=== PATIENT | male | born 1950 | race Caucasian/White ===

== ENCOUNTER 2016-07-16 21:30 | Emergency (ER) | payer MEDICARE, BC ==
--- NOTE | 2016-07-16 21:50 | EDM.PDOC ---
ED HPI GI/ABDOMINAL - General Chief Complaint: Abdominal Pain Stated Complaint: Constipation Time Seen by Provider: 07/16/16 21:46 Source of Information: Reports: Patient, Family, RN, RN notes reviewed History Limitations: Reports: No limitations - History of Present Illness INITIAL COMMENTS - FREE TEXT/NARRATIVE: PATIENT REQUESTS TO LEAVE AMA - NO ROS OR PHYSICAL EXAM PERFORMED - Related Data Allergies/ADRs: Allergies Allergy/AdvReac Type Severity Reaction Status Date / Time ticlopidine HCl [From Ticlid] Allergy Cannot Verified 09/21/13 17:54 Remember Home Meds: Home Meds Fish Oil/[place]-3 Fatty Acids [Fish Oil 1,000 MG] 1 each PO TID 07/01/13 [History ] Lisinopril [Prinivil] 40 mg PO DAILY 07/01/13 [History] Nitroglycerin [Nitrostat] 0.4 mg SL ASDIRECTED PRN 07/01/13 [History] Omeprazole 20 mg PO DAILY 07/01/13 [History] Sennosides/Docusate Sodium [Senna-Docusate Sodium] 1 - 2 each PO BEDTIME PRN [History] amLODIPine [Norvasc] 2.5 mg PO DAILY 07/01/13 [History] atorvaSTATin [Lipitor] 40 mg PO BEDTIME 07/01/13 [History] Albuterol [Ventolin HFA] 1 puff INH Q4H PRN 07/02/13 [History] Aspirin [Devendra Chewable] 81 mg PO DAILY 09/13/13 [History] Budesonide/Formoterol [Symbicort 80-4.5 MCG] 1 puff INH BID 09/13/13 [History] Carvedilol [Coreg] 3 tab PO BID 09/13/13 [History] Cilostazol [Pletal] 100 mg PO BID 09/13/13 [History] Clopidogrel [Plavix] 75 mg PO DAILY 09/13/13 [History] Isosorbide Mononitrate [Isosorbide Mononitrate ER] 30 mg PO DAILY 09/13/13 [ History] oxyCODONE HCl/Acetaminophen [Oxycodone-Acetaminophen 5-325] 1 each PO QID PRN [History] Furosemide [Lasix] 80 mg PO DAILY #30 tab 09/14/13 [Rx] Past Medical History - Past Health History Medical/Surgical History: Denies Medical/Surgical History Social & Family History - Tobacco Use Years of Tobacco use: 50 Used Tobacco, but Quit: Yes Month Tobacco Last Used: 06/24 Second Hand Smoke Exposure: No - Alcohol Use Days Per Week of Alcohol Use: 0 - Recreational Drug Use Recreational Drug Use: No ED ROS GENERAL - Review of Systems Review Of Systems: See Below (AMA) ED EXAM, GI/ABD - Physical Exam Exam: Not Obtained (AMA) Course - Vital Signs Last Recorded V/S: Last Vital Signs Temp 35.5 C 07/16/16 21:41 Pulse 101 H 07/16/16 21:41 Resp 20 07/16/16 21:41 BP 121/83 07/16/16 21:41 Pulse Ox 95 07/16/16 21:41 Departure - Departure Time of Disposition: 21:49 Disposition: Against Medical Advice 07 Clinical Impression: Left against medical advice Referrals: Cha Adames DO [Primary Care Provider] - Forms: Refusal of Care AMA - Problem List Review Problem List Initiated/Reviewed/Updated: Yes
[2016-07-16 21:51] VITALS: BP 121/83
== END 2016-07-16 21:51 | disposition left against medical advice (07) ==
LOC: VM.ED 21:30
DX: Z53.21 Procedure and treatment not carried out due to patient leaving prior to being seen by health care provider (principal)

== ENCOUNTER 2017-05-10 07:42 | Emergency (ER) | payer MEDICARE, BC ==
[2017-05-10] MEDS ORDERED: Sodium Chloride 0.9% 1,000 ML IV ONE (08:01)
[2017-05-10] MEDS ORDERED: Ondansetron 4 MG/2 ML SDV IVPUSH ONE (08:02)
--- NOTE | 2017-05-10 08:58 | EDM.PDOC ---
ED HPI GENERAL MEDICAL PROBLEM - General Chief Complaint: Abdominal Pain Stated Complaint: ILL Time Seen by Provider: 05/10/17 07:43 Source of Information: Reports: Patient, Family, Old Records, RN, RN Notes Reviewed History Limitations: Reports: No Limitations - History of Present Illness INITIAL COMMENTS - FREE TEXT/NARRATIVE: Patient presents the emergency room at [facility] complaining of generally not feeling well, nauseated, and poor appetite. The patient states his symptoms have been occurring for the past 2-3 days. The patient states he does feel somewhat lightheaded and dizzy. The patient denies any vomiting. The patient denies any diarrhea. No blood in stool. The patient denies any chest pain. The patient states that he is chronically short of breath. The patient denies any focal neurological deficits. The patient has a long-standing history of chronic systolic heart failure with an ejection fraction of less than 25%. The patient also has a history of paroxysmal atrial fibrillation with RVR. The patient was recently discharged from [facility] in [place] a couple of weeks ago due to heart problems. The patient also has diabetes with moderate COPD. The patient does continue to smoke cigarettes on a daily basis. It is felt that the patient has a poor appetite due to his severe congestive heart failure. Onset: Gradual Onset Date: 05/08/17 Rectal Pain Score (Numeric/FACES): 8 - Related Data Allergies Allergy/AdvReac Type Severity Reaction Status Date / Time ticlopidine HCl [From Ticlid] Allergy Cannot Verified 05/10/17 08:06 Remember Home Meds: Home Meds Fish Oil/[place]-3 Fatty Acids [Fish Oil 1,000 MG] 1 each PO TID 07/01/13 [History ] Lisinopril [Prinivil] 40 mg PO DAILY 07/01/13 [History] Nitroglycerin [Nitrostat] 0.4 mg SL ASDIRECTED PRN 07/01/13 [History] Omeprazole 20 mg PO DAILY 07/01/13 [History] Sennosides/Docusate Sodium [Senna-Docusate Sodium] 1 - 2 each PO BEDTIME PRN [History] amLODIPine [Norvasc] 2.5 mg PO DAILY 07/01/13 [History] atorvaSTATin [Lipitor] 40 mg PO BEDTIME 07/01/13 [History] Albuterol [Ventolin HFA] 1 puff INH Q4H PRN 07/02/13 [History] Aspirin [Devendra Chewable] 81 mg PO DAILY 09/13/13 [History] Budesonide/Formoterol [Symbicort 80-4.5 MCG] 1 puff INH BID 09/13/13 [History] Carvedilol [Coreg] 3 tab PO BID 09/13/13 [History] Cilostazol [Pletal] 100 mg PO BID 09/13/13 [History] Clopidogrel [Plavix] 75 mg PO DAILY 09/13/13 [History] Isosorbide Mononitrate [Isosorbide Mononitrate ER] 30 mg PO DAILY 09/13/13 [ History] oxyCODONE HCl/Acetaminophen [Oxycodone-Acetaminophen 5-325] 1 each PO QID PRN [History] Furosemide [Lasix] 80 mg PO DAILY #30 tab 09/14/13 [Rx] Past Medical History - Past Health History Medical/Surgical History: Denies Medical/Surgical History Social & Family History - Tobacco Use Smoking Status *Q: Current Every Day Smoker Years of Tobacco use: 50 Packs/Tins Daily: 1 Used Tobacco, but Quit: Yes Month Tobacco Last Used: 06/24 Second Hand Smoke Exposure: No - Alcohol Use Days Per Week of Alcohol Use: 0 - Recreational Drug Use Recreational Drug Use: No ED ROS GENERAL - Review of Systems Review Of Systems: See Below Constitutional: Reports: Weakness, Fatigue, Decreased Appetite. Denies: Fever, Chills Respiratory: Reports: Shortness of Breath, Wheezing. Denies: Cough Cardiovascular: Reports: Dyspnea on Exertion, Lightheadedness. Denies: Chest Pain, Palpitations GI/Abdominal: Reports: Decreased Appetite, Nausea. Denies: Abdominal Pain, Bloody Stool, Diarrhea, Vomiting Skin: Reports: No Symptoms Neurological: Reports: Dizziness. Denies: Headache ED EXAM, GENERAL - Physical Exam Exam: See Below Exam Limited By: No Limitations General Appearance: Alert, Mild Distress, Obese Respiratory/Chest: No Respiratory Distress, Decreased Breath Sounds, Wheezing Cardiovascular: Bradycardia (junctional rhythm). No: No Edema, No JVD Peripheral Pulses: 2+: Radial (L), Radial (R) GI/Abdominal: Soft, Non-Tender, Abnormal Bowel Sounds (Hypoactive) Neurological: Alert, Oriented Skin Exam: Warm, Dry, Intact EKG INTERPRETATION EKG Date: 05/10/17 Time: 07:54 Rhythm: Other (junctional) Rate (Beats/Min): 39 Pegram: Normal P-Wave: Absent QRS: RBBB ST-T: Normal QT: Normal WA/PQ Interval: Absent Comparison: Change From Previous EKG EKG Interpretation Comments: 1. Junctional 2. RBBB 3. Possible LVH 4. Possible anterior CO, probably old Course - Vital Signs Last Recorded V/S: Last Vital Signs Temp 35.1 C L 05/10/17 07:45 Pulse 39 L 05/10/17 07:45 Resp 16 05/10/17 07:45 BP 116/86 05/10/17 07:45 Pulse Ox 97 05/10/17 07:45 - Orders/Labs/Meds Orders: Active Orders 24 hr Category Date Time Status Chest 1V Frontal [CR] Stat Exams 05/10/17 08:05 Taken CULTURE BLOOD [BC] Stat Lab 05/10/17 08:21 Results CULTURE BLOOD [BC] Stat Lab 05/10/17 08:25 Results Calcium Gluconate 1 gm Med 05/10/17 10:00 Active Dextrose 5% in Water 100 ml IV ONETIME Dextrose 10% in Water 500 ml Med 05/10/17 10:00 Active IV ASDIRECTED Sodium Chloride 0.9% [Normal Saline] 1,000 ml Med 05/10/17 08:01 Active IV ONETIME Blood Culture x2 Reflex Set [OM.PC] Stat Oth 05/10/17 08:00 Ordered Medication Orders Sodium Chloride (Normal Saline) 1,000 mls @ 30 mls/hr IV ONETIME ONE Stop: 05/11/17 17:20 Last Admin: 05/10/17 08:10 Dose: 30 mls/hr Calcium Gluconate 1 gm/ (Dextrose/Water) 110 mls @ 220 mls/hr IV ONETIME ONE Stop: 05/10/17 10:29 Dextrose/Water (Dextrose 10% In Water) 500 mls @ 50 mls/hr IV ASDIRECTED [facility] Labs: Laboratory Tests 05/10/17 05/10/17 05/10/17 Range/Units 08:25 08:25 08:25 WBC 13.8 H (4.0-10.0) x10^3/uL RBC 5.36 (4.5-6.0) x10^6/uL Hgb 15.6 D (14.0-18.0) g/dL Hct 47.0 (40.0-52.0) % MCV 87.7 (78.0-93.0) fL MCH 29.1 (26.0-32.0) pg MCHC 33.2 (32.0-36.0) g/dL RDW Coeff of Yenni 16.7 H (10.0-15.0) % Plt Count 259 (130-400) x10^3/uL Add Manual Diff Yes Neutrophils % (Manual) 69 (50-80) % Band Neutrophils % 2 (0-6) % Lymphocytes % (Manual) 17 L (25-50) % Monocytes % (Manual) 11 (2-11) % Eosinophils % (Manual) 1 (0-4) % Platelet Estimate Adequate PT (9.8-11.8) SEC INR (2.0-3.5) Sodium 130 L (136-145) mmol/L Potassium 6.5 H* (3.5-5.1) mmol/L Chloride 97 L (98-107) mmol/L Carbon Dioxide 26 (21-32) mmol/L BUN 50 H (7-18) mg/dL Creatinine 1.6 H (0.70-1.30) mg/dL Est Cr Clr Drug Dosing TNP Estimated GFR (MDRD) 43 Glucose 173 H (74-106) mg/dL Lactic Acid 1.3 (0.4-2.0) mmol/L Calcium 8.7 (8.5-10.1) mg/dL Corrected Calcium 9.34 (8.5-10.1) mg/dL Total Bilirubin 0.4 (0.2-1.0) mg/dL AST 14 L (15-37) U/L ALT 17 (16-63) U/L Alkaline Phosphatase 112 (46-116) U/L Creatine Kinase 60 (39-308) U/L Troponin I < 0.017 (<=0.056) ng/mL C-Reactive Protein 1.4 H (<=0.9) mg/dL NT-Pro-B Natriuret Pep 498 H (<=125) pg/mL Total Protein 7.9 (6.4-8.2) g/dL Albumin 3.2 L (3.4-5.0) g/dL Globulin 4.7 Albumin/Globulin Ratio 0.68 Amylase 44 (25-115) U/L Lipase 159 (73-393) U/L Digoxin (0.90-2.00) ng/mL 05/10/17 05/10/17 Range/Units 08:25 08:25 WBC (4.0-10.0) x10^3/uL RBC (4.5-6.0) x10^6/uL Hgb (14.0-18.0) g/dL Hct (40.0-52.0) % MCV (78.0-93.0) fL MCH (26.0-32.0) pg MCHC (32.0-36.0) g/dL RDW Coeff of Yenni (10.0-15.0) % Plt Count (130-400) x10^3/uL Add Manual Diff Neutrophils % (Manual) (50-80) % Band Neutrophils % (0-6) % Lymphocytes % (Manual) (25-50) % Monocytes % (Manual) (2-11) % Eosinophils % (Manual) (0-4) % Platelet Estimate PT 25.8 H D (9.8-11.8) SEC INR 2.5 (2.0-3.5) Sodium (136-145) mmol/L Potassium (3.5-5.1) mmol/L Chloride (98-107) mmol/L Carbon Dioxide (21-32) mmol/L BUN (7-18) mg/dL Creatinine (0.70-1.30) mg/dL Est Cr Clr Drug Dosing Estimated GFR (MDRD) Glucose (74-106) mg/dL Lactic Acid (0.4-2.0) mmol/L Calcium (8.5-10.1) mg/dL Corrected Calcium (8.5-10.1) mg/dL Total Bilirubin (0.2-1.0) mg/dL AST (15-37) U/L ALT (16-63) U/L Alkaline Phosphatase (46-116) U/L Creatine Kinase (39-308) U/L Troponin I (<=0.056) ng/mL C-Reactive Protein (<=0.9) mg/dL NT-Pro-B Natriuret Pep (<=125) pg/mL Total Protein (6.4-8.2) g/dL Albumin (3.4-5.0) g/dL Globulin Albumin/Globulin Ratio Amylase (25-115) U/L Lipase (73-393) U/L Digoxin 1.47 (0.90-2.00) ng/mL Meds: Medications Generic Name Dose Route Start Last Admin Trade Name Freq PRN Reason Stop Dose Admin Sodium Chloride 1,000 mls @ 30 mls/hr 05/10/17 08:01 05/10/17 08:10 Normal Saline IV 05/11/17 17:20 30 mls/hr ONETIME ONE Administration Calcium Gluconate 1 gm/ 110 mls @ 220 mls/hr 05/10/17 10:00 Dextrose/Water IV 05/10/17 10:29 ONETIME ONE Dextrose/Water 500 mls @ 50 mls/hr 05/10/17 10:00 Dextrose 10% In Water IV ASDIRECTED JUAQUIN Discontinued Medications Generic Name Dose Route Start Last Admin Trade Name Freq PRN Reason Stop Dose Admin Dextrose/Water 50 ml 05/10/17 10:00 Dextrose 50% In Water IV 05/10/17 10:01 ONETIME ONE Insulin Human Regular 10 unit 05/10/17 10:00 Humulin R IV 05/10/17 10:01 ONETIME ONE Ondansetron HCl 4 mg 05/10/17 08:02 05/10/17 08:10 Zofran IVPUSH 05/10/17 08:03 4 mg ONETIME ONE Administration - Radiology Interpretation Free Text/Narrative:: CXR 1V: Cardiomegaly and lung hyperinflation, suggesting COPD - see scanned report in EMR Departure - Departure Time of Disposition: 10:29 Disposition: DC/Tfer to Acute Hospital 02 Reason for Transfer *Q: Other Condition: Fair Clinical Impression: Ischemic cardiomyopathy, Acute kidney injury (nontraumatic), Hyperkalemia, Junctional bradycardia Forms: Interfacility Transfer EMTALA ED Communication - ED Communication Date/Time Date: 05/10/17 Time Called: 10:20 - Discussed Case With (1) Discussed Case With (1): Admitting Provider (Dr. Box, IM. Report given. Patient accepted in transfer. Patient will be sent via ALS ground to [facility]) - Conversation Summary Admitting Provider Agreed to Patient's Admission: Yes - Problem List Review Problem List Initiated/Reviewed/Updated: Yes - My Orders Last 24 Hours: My Active Orders 05/10/17 08:00 Blood Culture x2 Reflex Set [OM.PC] Stat 05/10/17 08:01 Sodium Chloride 0.9% [Normal Saline] 1,000 ml IV ONETIME 05/10/17 08:05 Chest 1V Frontal [CR] Stat 05/10/17 08:21 CULTURE BLOOD [BC] Stat 05/10/17 08:25 CULTURE BLOOD [BC] Stat 05/10/17 10:00 Calcium Gluconate 1 gm Dextrose 5% in Water 100 ml IV ONETIME Dextrose 10% in Water 500 ml IV ASDIRECTED - Assessment/Plan Last 24 Hours: My Active Orders 05/10/17 08:00 Blood Culture x2 Reflex Set [OM.PC] Stat 05/10/17 08:01 Sodium Chloride 0.9% [Normal Saline] 1,000 ml IV ONETIME 05/10/17 08:05 Chest 1V Frontal [CR] Stat 05/10/17 08:21 CULTURE BLOOD [BC] Stat 05/10/17 08:25 CULTURE BLOOD [BC] Stat 05/10/17 10:00 Calcium Gluconate 1 gm Dextrose 5% in Water 100 ml IV ONETIME Dextrose 10% in Water 500 ml IV ASDIRECTED Assessment:: 1. Ischemia Cardiomyopathy 2. Junctional EKG 3. Hyperkalemia 4. Acute Kidney injury Plan: Case discussed with JEAN Garcia. , report given. Patient has been accepted in transfer. The patient will be transferred via ALS ground. The patient is aware of the transfer and wishes to proceed. Patient does not want to be transferred back to [place] if at all possible. He would like to keep his care local for now.
[2017-05-10 09:31] LABS: CHLORIDE,CL 97 mmol/L (98-107); SODIUM,NA 130 mmol/L (136-145)
[2017-05-10 09:42] VITALS: BP 116/86
[2017-05-10] MEDS ORDERED: Dextrose 10% in Water 500 ML IV SCH (10:00)
[2017-05-10] MEDS ORDERED: Insulin Regular, Human 100 Units/ML 3 ML Vial IV ONE (10:00)
[2017-05-10] MEDS ORDERED: 50% Dextrose in Water 50 ML Syringe IV ONE (10:00)
[2017-05-10] MEDS ORDERED: Calcium Gluconate 1 GM in Dextrose 5% in Water 100 ML IV ONE ×2 (10:00)
== END 2017-05-10 11:35 | disposition short-term general hospital (02) ==
LOC: VM.ED 07:42
DX: I25.5 Ischemic cardiomyopathy (principal); E87.5 Hyperkalemia; N17.9 Acute kidney failure, unspecified; F17.210 Nicotine dependence, cigarettes, uncomplicated; Z88.8 Allergy status to other drugs, medicaments and biological substances; Z79.899 Other long term (current) drug therapy; Z79.82 Long term (current) use of aspirin
CPT/HCPCS: 36415; 71045; 80053; 80162; 82150; 82550; 83605; 83690; 83880; 84484; 85025; 85610; 86140; 87040; 96361; 96365; 96367; 96375; 99285; J0610; J1815; J2405; J7030; J7060

== ENCOUNTER 2018-04-06 11:26 | Inpatient (IN) | payer OTHER ==
[2018-04-06] MEDS ORDERED: Albuterol/Ipratropium 3.0-0.5 MG/3 ML Neb Soln NEB PRN (12:38)
[2018-04-06] MEDS ORDERED: Ondansetron 4 MG/2 ML SDV IV PRN (12:38)
[2018-04-06] MEDS ORDERED: Ondansetron 4 MG Tab.DIS PO PRN (12:42)
[2018-04-06] MEDS ORDERED: HYOSCYAMINE SULFATE 0.125 MG PO PRN (12:42)
[2018-04-06] MEDS ORDERED: MORPHINE SULFATE 4 MG INJECT PRN (12:42)
[2018-04-06] MEDS ORDERED: Diazepam 5 MG Tab PO PRN (12:42)
[2018-04-06] MEDS ORDERED: Haloperidol Lactate 2 MG/ML Oral Soln 15 ML Bottle PO PRN (12:42)
[2018-04-06] MEDS ORDERED: FENTANYL TD SCH (12:45)
[2018-04-06] MEDS ORDERED: Nicotine 21 MG/24 Hr Patch TRDERM ONE (12:47)
[2018-04-06] MEDS ORDERED: MORPHINE 10 MG IV PRN (13:12)
[2018-04-06] MEDS ORDERED: HYDROmorphone 1 MG/ML Syringe IVPUSH SCH (13:15)
[2018-04-06] MEDS ORDERED: diazePAM 5 MG/ML MDV IVPUSH PRN (13:18)
[2018-04-06] MEDS: MORPHINE 10 MG IV PRN ×3 (13:20→22:53)
[2018-04-06] MEDS: Lidocaine 2% Jelly 5 ML Tube TOP SCH ×2 (13:24→19:45)
[2018-04-06] MEDS ORDERED: DUONEB NEB PRN (13:30)
[2018-04-06] MEDS: HYDROmorphone 1 MG/ML Syringe IVPUSH SCH ×2 (13:40→19:45)
[2018-04-06] MEDS ORDERED: HYOSYNE PO PRN (13:59)
[2018-04-06] MEDS: DIAZEPAM 5 MG PO PRN (14:22)
[2018-04-06] MEDS: BUMETANIDE 1 MG PO SCH (16:26)
[2018-04-06] MEDS: CARVEDILOL 3.125 MG PO SCH (19:46)
[2018-04-06] MEDS: Sodium Chloride 0.9% 10 ML Syringe FLUSH PRN (19:46)
[2018-04-06] MEDS: DIAZEPAM 5 MG PO SCH (19:47)
[2018-04-06] MEDS ORDERED: Carvedilol 6.25 MG Tab PO SCH (20:00)
[2018-04-06] MEDS ORDERED: Diazepam 5 MG Tab PO SCH (20:00)
[2018-04-06] MEDS ORDERED: UTIBRON NEOHALER PO SCH (20:00)
[2018-04-06] MEDS ORDERED: Bumetanide 1 MG Tab PO SCH (20:00)
--- NOTE | 2018-04-06 22:41 | PCM.HP ---
H&P History of Present Illness - General Date of Service: 04/06/18 Admit Problem/Dx: Admission Diagnosis/Problem Admission Diagnosis/Problem CHF, Congestive heart failure Source of Information: Patient, RN (hospice) History Limitations: Reports: No Limitations - History of Present Illness Initial Comments - Free Text/Narative: Patient on hospice since has been having increasing pain in his back and legs at home recently started on a fentanyl patch over a week ago titrated up to 150 mcg just changed yesterday but still requiring prn oxycodone up to 20 mg but not always taking routinely. He did get a dose of subcutaneous morphine last night had another 8 mg dose by hospice earlier but is not comfortable with giving subcutaneous doses. Came in by EMS for a GIP admission for pain control was very cyanotic per staff when he arrived but within 15 minutes he was alert and eating lunch. He was also started on Neurontin earlier in the week and got a dose this AM but they believe it is causing twitching. He also was started on Valium yesterday. He told me his pain was a 2 of 10 but then I removed his leg wraps and he was screaming in pain. He had a switch from lasix to bumex and his legs are less swollen and drainage less. He has been on narcotics prior to hospice for back pain with a hx of multiple back surgeries. Primary hospice diagnosis is CHF. He also has secondary diagnosis of COPD. He has Rheumatoid arthritis and did start on prednisone 20 mg daily Monday to help with flare of pain. He has diabetes and a. fib. Did decide to stop coumadin per the the hospice nurse last night. Onset of Symptoms: Reports: Gradual Duration of Symptoms: Reports: Day(s): Location: Reports: Back - Related Data Allergies/Adverse Reactions: Allergies Allergy/AdvReac Type Severity Reaction Status Date / Time ticlopidine HCl [From Ticlid] Allergy Cannot Verified 05/10/17 08:06 Remember Home Medications: Home Meds Omeprazole 20 mg PO DAILY 07/01/13 [History] Sennosides/Docusate Sodium [Senna-Docusate Sodium] 1 each PO BID 07/01/13 [ History] Carvedilol [Coreg] 0.5 tab PO BID 09/13/13 [History] Clopidogrel [Plavix] 75 mg PO DAILY 09/13/13 [History] Albuterol/Ipratropium [DuoNeb 3.0-0.5 MG/3 ML] 3 ml .XX Q4H PRN 04/06/18 [ History] Aspirin [Ecotrin] 325 mg PO DAILY 04/06/18 [History] Bumetanide [Bumex] 2 mg PO BID 04/06/18 [History] Diazepam [Valium] 5 mg PO Q4H PRN 04/06/18 [History] Digoxin [Digox] 125 mcg PO DAILY 04/06/18 [History] Haloperidol Lactate [Haldol 2 MG/ML Soln] 1 mg PO Q6H PRN 04/06/18 [History] Hyoscyamine Sulfate 0.125 mg PO Q4H PRN 04/06/18 [History] Morphine Sulfate 4 - 8 mg INJECT Q1H PRN 04/06/18 [History] Ondansetron [Zofran] 4 mg PO Q8H PRN 04/06/18 [History] Sertraline HCl 50 mg PO DAILY 04/06/18 [History] fentaNYL [Fentanyl] 150 mcg TD Q72H 04/06/18 [History] glipiZIDE [Glipizide Xl] 2.5 mg PO DAILY 04/06/18 [History] metOLazone [Metolazone] 2.5 mg PO MOWEFR@08 04/06/18 [History] oxyCODONE HCl [Oxycodone HCl] 20 mg PO Q3H PRN 04/06/18 [History] predniSONE [Prednisone] 20 mg PO DAILY 04/06/18 [History] Past Medical History - Past Health History Medical/Surgical History: Denies Medical/Surgical History Cardiovascular History: Reports: Heart Failure, Hypertension Respiratory History: Reports: COPD, Sleep Apnea Social & Family History - Tobacco Use Smoking Status *Q: Heavy Tobacco Smoker Years of Tobacco use: 50 Packs/Tins Daily: 2 H&P Review of Systems - Review of Systems: Review Of Systems: See Below General: Reports: Weakness, Diaphoresis, Weight Gain. Denies: Fever, Chills HEENT: Reports: No Symptoms Pulmonary: Reports: Shortness of Breath, Wheezing, Cough. Denies: Sputum Cardiovascular: Reports: Edema. Denies: Chest Pain, Lightheadedness Gastrointestinal: Reports: Diarrhea. Denies: Abdominal Pain, Bloody Stool, Melena Genitourinary: Reports: No Symptoms Musculoskeletal: Reports: Back Pain, Leg Pain Skin: Reports: Wound Psychiatric: Reports: Depression, Anxiety Neurological: Reports: Tremors, Difficulty Walking. Denies: Headache, Trouble Speaking Hematologic/Lymphatic: Reports: No Symptoms Immunologic: Reports: No Symptoms Exam - Exam Exam: See Below - Vital Signs Vital Signs: Last Vital Signs Temp 97.7 F 04/06/18 12:09 Pulse 86 04/06/18 12:09 Resp 24 H 04/06/18 12:09 BP 85/62 L 04/06/18 12:09 Pulse Ox 91 L 04/06/18 20:00 Weight: 143.843 kg - Exam Quality Assessment: Supplemental Oxygen General: Alert, Oriented, Cooperative HEENT: Conjunctiva Clear, EACs Clear, EOMI Neck: Supple, Trachea Midline Lungs: Normal Respiratory Effort, Decreased Breath Sounds, Wheezing. No: Crackles Cardiovascular: Irregular Rhythm (distant tones) GI/Abdominal Exam: Normal Bowel Sounds, Soft, Non-Tender, No Organomegaly, Distended Back Exam: Muscle Spasm, Paraspinal Tenderness. No: CVA Tenderness (L), CVA Tenderness (R), Vertebral Tenderness Extremities: Pedal Edema, Leg Pain, Redness. No: Increased Warmth Skin: Wound Neuro Extensive - Mental Status: Alert, Oriented x3 - Patient Data Lab Results Last 24 hrs: Laboratory Results - last 24 hr 04/06/18 Range/Units 13:12 POC Glucose 190 H (74-106) mg/dL - Problem List (1) COPD (chronic obstructive pulmonary disease) SNOMED Code(s): 85924273 ICD Code: J44.9 - CHRONIC OBSTRUCTIVE PULMONARY DISEASE, UNSPECIFIED Status : Acute Priority: High Current Visit: Yes Problem Details: treated earlier this month with keflex for exacerbation Qualifiers: COPD type: chronic bronchitis Chronic bronchitis type: unspecified Qualified Code(s): J42 - Unspecified chronic bronchitis (2) Smoking SNOMED Code(s): 37062922 ICD Code: F17.200 - NICOTINE DEPENDENCE, UNSPECIFIED, UNCOMPLICATED Status : Chronic Priority: Medium Current Visit: Yes (3) Rheumatoid arthritis SNOMED Code(s): 32893316 ICD Code: M06.9 - RHEUMATOID ARTHRITIS, UNSPECIFIED Status: Chronic Priority: Medium Current Visit: Yes Qualifiers: Rheumatoid arthritis location: multiple sites Rheumatoid factor presence: unspecified presence Qualified Code(s): M06.9 - Rheumatoid arthritis, unspecified (4) Back pain SNOMED Code(s): 949354581 ICD Code: M54.9 - DORSALGIA, UNSPECIFIED Status: Chronic Priority: Medium Current Visit: Yes Qualifiers: Back pain location: low back pain Chronicity: chronic Back pain laterality: bilateral Sciatica presence: with sciatica Sciatica laterality: bilateral sciatica Qualified Code(s): M54.42 - Lumbago with sciatica, left side; M54.41 - Lumbago with sciatica, right side; G89.29 - Other chronic pain (5) Leg pain SNOMED Code(s): 98235497 ICD Code: M79.606 - PAIN IN LEG, UNSPECIFIED Status: Acute Current Visit : Yes (6) CHF, Congestive heart failure SNOMED Code(s): 88544090 ICD Code: I50.9 - HEART FAILURE, UNSPECIFIED Status: Chronic Priority: Medium Current Visit: No (7) Ischemic cardiomyopathy SNOMED Code(s): 251780998 ICD Code: I25.5 - ISCHEMIC CARDIOMYOPATHY Status: Chronic Priority: Medium Current Visit: No Problem List Initiated/Reviewed/Updated: Yes Orders Last 24hrs: Active Orders 24 hr Category Date Time Status Patient Status [ADT] Routine ADT 04/06/18 11:32 Active Insert Oneal Catheter [Insert Urinary Catheter] [OM.PC] Care 04/06/18 18:15 Ordered Q24H Oxygen Therapy [RC] , Care 04/06/18 12:38 Active RT Aerosol Therapy [RC] ASDIRECTED Care 04/06/18 12:41 Active Up With Assistance [RC] ASDIRECTED Care 04/06/18 12:38 Active Urinary Catheter Assessment [RC] ,20 Care 04/06/18 18:15 Active VTE/DVT Education [RC] .PRN Care 04/06/18 12:38 Active Vital Signs [RC] 06 Care 04/06/18 12:38 Active Regular Diet [DIET] Diet 04/06/18 Dinner Active Aspirin [Ecotrin] Med 04/07/18 08:00 Active 325 mg PO DAILY Bumetanide. Med 04/06/18 16:00 Active 0 mg PO BIDDIURETIC Carvedilol. Med 04/06/18 20:00 Active 0 mg PO BID Diazepam. Med 04/06/18 20:00 Active 0 mg PO BEDTIME Diazepam. Med 04/06/18 13:17 Active 0 mg PO Q4H PRN Docusate Sodium/Sennosides [Senna Plus] Med 04/06/18 12:42 Active 1 tab PO BID PRN Duoneb. Med 04/06/18 13:30 Active 1 each NEB Q4H PRN Fentanyl [Fentanyl] Med 04/08/18 08:00 Active 0 mcg TD Q72H Fentanyl [Fentanyl] Med 04/08/18 08:00 Active 0 mcg TD Q72H HYDROmorphone [Dilaudid] Med 04/06/18 14:00 Active 1 mg IVPUSH Q6H Haloperidol Lactate [Haldol 2 MG/ML Soln] Med 04/06/18 12:42 Active 1 mg PO Q6H PRN Hyosyne Med 04/06/18 13:59 Active 0.125 mg PO Q4H PRN Lidocaine 2% [Xylocaine 2% Jelly] Med 04/06/18 13:00 Active 0 ml TOP BID Metolazone. Med 04/09/18 08:00 Active 0 mg PO MOWEFR@0800 Morphine. Med 04/06/18 13:21 Active 10 mg IV Q2H PRN Omeprazole Med 04/07/18 07:00 Active 20 mg PO DAILY@0700 Ondansetron [Zofran ODT] Med 04/06/18 12:42 Active 4 mg PO Q8H PRN Ondansetron [Zofran] Med 04/06/18 12:38 Active 4 mg IV Q4H PRN Sertraline. Med 04/07/18 08:00 Active 0 mg PO DAILY Sodium Chloride 0.9% [Saline Flush] Med 04/06/18 12:38 Active 10 ml FLUSH ASDIRECTED PRN diazePAM [Valium] Med 04/06/18 13:18 Active 2.5 mg IVPUSH Q8H PRN predniSONE Med 04/07/18 08:00 Active 20 mg PO DAILY Peripheral IV Insertion Adult [OM.PC] Routine Oth 04/06/18 12:38 Ordered Resuscitation Status Routine Resus Stat 04/06/18 12:38 Ordered Medication Orders Aspirin (Ecotrin) 325 mg PO DAILY DONALDO Diazepam (Valium) 2.5 mg IVPUSH Q8H PRN PRN Reason: Muscle Spasm Haloperidol Lactate (Haldol 2 Mg/Ml Soln) 1 mg PO Q6H PRN PRN Reason: restlessness Hydromorphone HCl (Dilaudid) 1 mg IVPUSH Q6H [facility] Last Admin: 04/06/18 19:45 Dose: 1 mg Admin: 04/06/18 13:40 Dose: 1 mg Lidocaine HCl (Xylocaine 2% Jelly) 0 ml TOP BID [facility] Last Admin: 04/06/18 19:45 Dose: 1 applic Admin: 04/06/18 13:24 Dose: 1 applic Diazepam. 5mg (Own (Supply)) 0 mg PO Q4H PRN PRN Reason: restless or spasms Last Admin: 04/06/18 14:22 Dose: 5 mg Diazepam. 5mg (Own (Supply)) 0 mg PO BEDTIME [facility] Last Admin: 04/06/18 19:47 Dose: 5 mg Non-Formulary Medication (Morphine.) 10 mg IV Q2H PRN PRN Reason: Pain Last Admin: 04/06/18 16:25 Dose: 10 mg Admin: 04/06/18 13:20 Dose: 10 mg Duoneb. (Own Supply) 1 each NEB Q4H PRN PRN Reason: dyspnea/wheezing Fentanyl 100mcg (Patch (Own Supply)) 0 mcg TD Q72H [facility] Bumetanide. 1mg X 2 (= 2mg (Own Supply)) 0 mg PO BIDDIURETIC [facility] Last Admin: 04/06/18 16:26 Dose: 2 mg Carvedilol. 3.125mg ((Own Supply)) 0 mg PO BID [facility] Last Admin: 04/06/18 19:46 Dose: 3.125 mg Metolazone. 2.5mg ( (Own Supply)) 0 mg PO MOWEFR@0800 [facility] Sertraline. 50mg ( (Own Supply)) 0 mg PO DAILY [facility] Fentanyl 50mcg Patch ((Own Supply)) 0 mcg TD Q72H [facility] Hyosyne 0.125mg/Ml (Oral Solution) 0.125 mg PO Q4H PRN PRN Reason: secretions Omeprazole (Omeprazole) 20 mg PO DAILY@0700 [facility] Ondansetron HCl (Zofran) 4 mg IV Q4H PRN PRN Reason: Nausea/Vomiting Ondansetron HCl (Zofran Odt) 4 mg PO Q8H PRN PRN Reason: Nausea Prednisone (Prednisone) 20 mg PO DAILY DONALDO Senna/Docusate Sodium (Senna Plus) 1 tab PO BID PRN PRN Reason: Constipation Sodium Chloride (Saline Flush) 10 ml FLUSH ASDIRECTED PRN PRN Reason: Keep Vein Open Last Admin: 04/06/18 19:46 Dose: 10 ml Assessment/Plan Comment:: Chronic systolic CHF on hospice continue bumex and metolazone Back and leg pain probably some element of neuropathy and worsened by edema in addition to radicular pain COPD with chronic hypoxia continue home Bipap device Loose stools we will hold laxatives if diarrhea is severe could even consider c. diff in the setting of recent ABX use RA with flare on prednisone will continue prednisone 20 mg daily for at least 1 week total Diabetes on oral meds accucheck 190 no need for frequent monitoring will hold glipizide for now Atrial fibrillation on Aspirin Morbid obesity Admit for comfort measures in the setting of severe pain we will leave on the Fentanyl patch and donaldo dilaudid 1 mg IV QID and morphine 10 mg IV Q 2 hrs prn. Potential Morphine equivalents 600 based on what he could have taken at home. Hold neurontin for now could consider lyrica but nothing available IV Valium for anxiety and muscle spasm Consider transition to a Dilaudid CADD at home in 48-72 hrs after pain control stabilized marketing services coordinator to be involved.
[2018-04-07] MEDS: HYDROmorphone 1 MG/ML Syringe IVPUSH SCH ×4 (02:00→19:30)
[2018-04-07] MEDS: DIAZEPAM 5 MG PO PRN ×3 (02:01→21:48)
[2018-04-07] MEDS: MORPHINE 10 MG IV PRN ×3 (06:17→21:47)
[2018-04-07] MEDS: Omeprazole 20 MG Cap.CR PO SCH (06:18)
[2018-04-07] MEDS ORDERED: Sertraline 50 MG Tab PO SCH (08:00)
[2018-04-07] MEDS: BUMETANIDE 1 MG PO SCH ×2 (08:29→15:45)
[2018-04-07] MEDS: SERTRALINE 50 MG PO SCH (08:29)
[2018-04-07] MEDS: Aspirin 325 MG Tab.EC PO SCH (08:29)
[2018-04-07] MEDS: CARVEDILOL 3.125 MG PO SCH ×2 (08:29→19:28)
[2018-04-07] MEDS: Lidocaine 2% Jelly 5 ML Tube TOP SCH ×2 (08:30→19:30)
[2018-04-07] MEDS: predniSONE 20 MG Tab PO SCH (08:35)
[2018-04-07] MEDS: Magnesium Oxide 400 MG Tab PO SCH ×2 (10:58→19:31)
--- NOTE | 2018-04-07 11:36 | PN ---
Progress Note for SHELL MACHADO Date: 04/07/2018 Room #: VM.201 SUBJECTIVE: This is hospital day #2 on a 67-year-old on GIP for severe back and leg pain. The patient is just getting out of the shower this morning. He says he feels great. His pain is mainly in his legs. He does have wounds there. It is red, but it isn't warm. There is some weeping. He tolerated nursing rubbing lotion on it. He states that felt good and getting the Lidoderm placed on it. Still rating his pain at 5/10. He is on the 1 mg of IV Dilaudid 4 times a day. He is also receiving p.r.n. morphine 10 mg for breakthrough pain. He had 2 doses already this morning. He had a total of 30 mg yesterday since his admission around noon. Otherwise, he is also on 150 daily of the fentanyl patch. He did get some Valium at bedtime and he received also 2 other p.r.n. doses of 5 mg oral. He states his breathing is okay. He has not required the p.r.n. nebulizer. He was not using the UTIBRON at home as he just did not have the strength to use it. He denies any chest pain. He is now off the Neurontin. He was having a lot of muscle twitches with it. He is also having a lot of muscle cramps, so oral magnesium will be instituted. Heart rates were running a little bit faster this a.m. Otherwise, he has been eating good here. OBJECTIVE: Vital Signs: He did have some vitals done this morning. His weight is 143 kg, temperature 98.7, pulse is up to 122, but low was 84, blood pressure 119/53, respiratory rate 20, O2 of 94% on 4 L. General: He is in no acute distress. He is transitioning from the bath chair to his bed with assist of 2, but he is able to move a few steps and transfer which is the standby assist, did require assist of 4 staff to safely position him in bed. Heart: Irregularly irregular with distant tones. No murmur appreciated. Lungs: Lung sounds decreased with some expiratory wheezing. Otherwise, no crackles. Abdomen: Distended. Positive bowel sounds. Nontender. He does have hernia midepigastric noted. Extremities: They are warm and weeping in places. He has a lot of wounds, especially on the left lower extremity. No active blisters. His feet are almost slightly purple in appearance, but otherwise he is not cyanotic. Mental Status: He is alert. He is orientated x3. He recognizes me. ASSESSMENT: 1. General inpatient hospice admission for pain control in the setting of severe leg pain with leg wounds from lymphedema and heart failure. Right now, he isn't having much back pain, but we will continue the same pain control for the leg pain and do local cares. We will also wrap the legs, keep them up and in bed. At this point, we will hold off on adding anything for neuropathy as he denies has any burning pain going into his feet. 2. Chronic systolic heart failure, on hospice, on Bumex and metolazone. This is his qualifying diagnosis. 3. Chronic obstructive pulmonary disease with chronic hypoxia. He has his home Trilogy device. He also has p.r.n. nebs available. 4. Loose stools. He was on some antibiotics a few weeks ago. However, he is now having regular bowel movements. His laxatives are on hold, but the magnesium should help. We will continue to monitor. 5. Rheumatoid arthritis with flare. He is on prednisone. Plan for 20 mg daily for 1 week total which would be around Monday. 6. Diabetes, on oral medications. Accu-Chek yesterday 190. No frequent monitoring recommended. I actually held his glipizide. 7. Atrial fibrillation, now on aspirin. 8. Morbid obesity. PLAN: At this point, the patient will continue with comfort measures for GIP admission. It has been less than 24 hours. We will definitely be able to now reassess the appropriate management for his pain control and readjust those medications as needed and plan for discharge. Otherwise, we will continue his nicotine patch. He does not think he needs it, but we can stop if needed. He seems to be doing really well overall, but may require significantly more care at home when he is able to transition back there. FRAN: 04/07/2018 11:00:10 MODL: 04/07/2018 11:31:38 /[id number]
[2018-04-07] MEDS: Nicotine 21 MG/24 Hr Patch TRDERM SCH (11:51)
[2018-04-07] MEDS: Digoxin 125 MCG Tab PO SCH (11:52)
[2018-04-07] MEDS: DIAZEPAM 5 MG PO SCH (19:29)
[2018-04-07] MEDS: Sodium Chloride 0.9% 10 ML Syringe FLUSH PRN ×2 (19:32→21:47)
[2018-04-08] MEDS: HYDROmorphone 1 MG/ML Syringe IVPUSH SCH ×2 (01:45→08:21)
[2018-04-08] MEDS: Sodium Chloride 0.9% 10 ML Syringe FLUSH PRN ×2 (01:49→05:28)
[2018-04-08] MEDS: MORPHINE 10 MG IV PRN ×2 (05:27→08:22)
[2018-04-08] MEDS: DIAZEPAM 5 MG PO PRN (05:27)
[2018-04-08] MEDS: Omeprazole 20 MG Cap.CR PO SCH (06:24)
[2018-04-08] MEDS ORDERED: FENTANYL 50 MCG TD SCH (08:00)
[2018-04-08] MEDS ORDERED: FENTANYL 100 MCG TD SCH (08:00)
[2018-04-08] MEDS: SERTRALINE 50 MG PO SCH (08:17)
[2018-04-08] MEDS: BUMETANIDE 1 MG PO SCH ×2 (08:18→17:16)
[2018-04-08] MEDS: CARVEDILOL 3.125 MG PO SCH ×2 (08:18→20:17)
[2018-04-08] MEDS: Nicotine 21 MG/24 Hr Patch TRDERM SCH (08:19)
[2018-04-08] MEDS: Magnesium Oxide 400 MG Tab PO SCH ×2 (08:20→20:17)
[2018-04-08] MEDS: Digoxin 125 MCG Tab PO SCH (08:20)
[2018-04-08] MEDS: Aspirin 325 MG Tab.EC PO SCH (08:21)
[2018-04-08] MEDS: predniSONE 20 MG Tab PO SCH (08:21)
[2018-04-08] MEDS: Lidocaine 2% Jelly 5 ML Tube TOP SCH ×2 (08:21→20:21)
[2018-04-08] MEDS ORDERED: diazePAM 5 MG/ML MDV IM PRN (10:09)
[2018-04-08] MEDS ORDERED: MORPHINE 10 MG IM PRN (10:10)
[2018-04-08] MEDS ORDERED: HYDROmorphone 1 MG/ML Syringe IM SCH (10:10)
[2018-04-08] MEDS ORDERED: HYDROmorphone 1 MG/ML Syringe SUBCUT PRN (10:24)
[2018-04-08] MEDS: Cephalexin 500 MG Cap PO SCH ×4 (10:51→20:17)
--- NOTE | 2018-04-08 10:56 | PN ---
Progress Note for SHELL MACHADO Date: 04/08/2018 Room #: VM.201 SUBJECTIVE: Hospital day #3 for GIP admission for a 67-year-old with severe leg pain in the setting of CHF and edema with leg wounds, now with worsening redness and warmth. He has been treated with antibiotics in the past, which has helped. He has been afebrile. He did get 3 doses of oral Valium yesterday p.r.n., he also is scheduled at bedtime. He got 20 mg of IV morphine this morning, 30 mg total yesterday, and 30 mg total on Monday after admission. He is very comfortable. His pain level is down to a 3. It had never been below a 5 at home. He is on the scheduled IV Dilaudid 1 mg daily q.i.d. At home, he was having a lot of burning at least on 2 attempts with his subcu line with morphine. OBJECTIVE: Vital Signs: His temperature is 97.8, pulse 85, blood pressure 122/78, respiratory rate 19, and O2 of 91% on 4 L. GENERAL: He is in no acute distress. HEART: Irregularly irregular. LUNG: Sounds are decreased with rhonchi and wheezing. ABDOMEN: Positive bowel sounds. It is distended but nontender. He does have a hernia in place. EXTREMITIES: Warm, especially over the redness in both shins. He has 1+ taut edema. He has wounds especially on that left leg with minimal drainage, but there is purulent material on his dressing. Otherwise, he denies any pain in his toes, so I do not think the leg pain is neuropathy. He states he does not have any back pain currently. ASSESSMENT AND PLAN: 1. General inpatient hospice admission for pain control in the setting of severe leg pain with edema related to congestive heart failure. Clinically, he is improving. I think we will go ahead and try some antibiotics today to see if that helps. I am going to stop the prednisone because that can make swelling worse. I do not think his pain now is from any rheumatoid arthritis flare. 2. Chronic systolic heart failure, on hospice. Fluid is coming off with the Bumex and metolazone. We will continue with the same. 3. Urinary retention. Oneal was placed. He had 600 output that is going well and providing comfort. We will continue with Oneal. 4. Chronic obstructive pulmonary disease with chronic hypoxia. Antibiotic may help somewhat with that. He also has p.r.n. nebs available. 5. Rheumatoid arthritis. We will stop the prednisone today. He was on it less than a week, so no tapering indicated. 6. Diabetes. Oral medications on hold. No indication for monitoring. There will be improved blood sugars, especially now off prednisone. 7. Atrial fibrillation, on aspirin. Rates are now under better control with his beta-carrie and Coreg. 8. Morbid obesity. 9. Cellulitis. Keflex will be started. PLAN: At this point, the patient will continue GIP admission for comfort measures. We will be switching from the IV Dilaudid 4 times a day to oral 4 mg. I will also be switching the subcu morphine p.r.n. to subcu Dilaudid p.r.n. We will continue with the scheduled and p.r.n. Valium. Overall, I think if he can continue to have good pain control, that it is very likely he will be discharged back home with family and hospice as soon as tomorrow. Hospice nurses were updated today. MKA: 04/08/2018 10:35:46 MODL: 04/08/2018 10:51:08 /[id number]
[2018-04-08] MEDS: HYDROmorphone 2 MG Tab PO SCH ×3 (11:50→22:42)
[2018-04-08] MEDS: DIAZEPAM 5 MG PO SCH (20:17)
[2018-04-09] MEDS: HYDROmorphone 2 MG Tab PO SCH ×2 (04:24→13:17)
[2018-04-09] MEDS: Omeprazole 20 MG Cap.CR PO SCH (06:34)
[2018-04-09 06:41] VITALS: BP 122/64
[2018-04-09] MEDS ORDERED: Metolazone 2.5 MG Tab PO SCH (08:00)
[2018-04-09] MEDS ORDERED: METOLAZONE 2.5 MG PO SCH (08:00)
[2018-04-09] MEDS: Nicotine 21 MG/24 Hr Patch TRDERM SCH (08:04)
[2018-04-09] MEDS: Magnesium Oxide 400 MG Tab PO SCH (08:04)
[2018-04-09] MEDS: CARVEDILOL 3.125 MG PO SCH (08:04)
[2018-04-09] MEDS: Aspirin 325 MG Tab.EC PO SCH (08:04)
[2018-04-09] MEDS: SERTRALINE 50 MG PO SCH (08:04)
[2018-04-09] MEDS: Lidocaine 2% Jelly 5 ML Tube TOP SCH (08:05)
[2018-04-09] MEDS: BUMETANIDE 1 MG PO SCH (08:05)
[2018-04-09] MEDS: Digoxin 125 MCG Tab PO SCH (08:23)
[2018-04-09] MEDS: Cephalexin 500 MG Cap PO SCH ×2 (08:23→11:11)
--- NOTE | 2018-04-09 10:36 | DISCH ---
PRIMARY DISCHARGE DIAGNOSES: 1. An acute severe exacerbation of pain due to leg pain and cellulitis in a patient on hospice care for congestive heart failure. 2. Chronic systolic heart failure, on hospice without exacerbation. Breathing is at baseline. 3. Urinary retention. The patient had a Oneal placed, had 600 of urine out, that has been working well for him. We will continue Oneal for comfort. 4. Chronic obstructive pulmonary disease with chronic hypoxia. He continues on 4 L of oxygen. He does use a Trelegy at night. 5. Rheumatoid arthritis with concern for flare. He was receiving some prednisone that was completed while he was here. 6. Diabetes. He was on glipizide at home. Blood sugars were under 200 even while on prednisone. Therefore, glipizide was discontinued. 7. Atrial fibrillation. He was recently on Coumadin. This was stopped. He is now on aspirin. 8. Morbid obesity. 9. Cellulitis to the right lower extremity, started on Keflex. REASON FOR ADMISSION: On the date of admission, this is a 67-year-old who was at home being cared for by his . He has been on hospice for nearly 6 months, was having more difficulty with pain. He was having subcu doses of morphine, which was burning through the port. He was more hypoxic despite being on oxygen. He was actually brought in by ambulance for a general inpatient hospice stay. Within about a half hour, the patient was less hypoxic. He was more alert. He was able to be eating lunch. He did not get any immediate pain control upon arrival to the hospital, but an IV line was started and his medications were provided IV with IV Dilaudid 4 times a day and then p.r.n. morphine 10 mg for which he received a total of 30 mg on average per day. He had rated his pain which was always over a 5 at home to be a 2-3 while in the hospital. His leg wounds were examined. There was some drainage, some surrounding redness. Therefore, he was instituted on Keflex. He remained afebrile during his stay. His pain greatly improved. He was transitioned off the IV Dilaudid to oral 4 times a day and then had p.r.n. subcu for which he received only 1 dose and stated it did not burn at all. Otherwise, he was continued on his home oxygen. He was having some difficulty with urination, therefore was agreeable to placing a catheter. He had good urine output through the catheter and also the patient was having bowel movements during his stay. There was some concern for diarrhea when he came in, but he had no further diarrhea here. He had previously been on an antibiotic for respiratory illness, Keflex a couple of weeks ago, but had also been taking laxative. Those were held. The patient was also instituted on magnesium due to the muscle cramps since he is on high-dose diuretics, which I did leave the same at 2 mg twice daily and metolazone 3 times a week. PHYSICAL EXAMINATION: Vital Signs: Discharging vitals, temperature 97.6, pulse 80, blood pressure 122/64, respiratory rate 20, O2 of 94% on 4 L. General: He is in no acute distress. He is up in the chair. Heart: Regularly irregular. Lungs: Lung sounds are decreased with some rhonchi, but no wheezing. Abdomen: Positive bowel sounds. Soft and nontender. He has had hernia in place. Extremities: Warm and dry. Wrapping is in place currently. He has just taut edema, but seems to be improved from admission. Neurologic: Otherwise, mental status, he is alert, he is orientated x3. He is in good spirits. DISCHARGE PLANS AND INSTRUCTIONS: The patient going home with hospice. We did our [id number] visit today. He will be on the fentanyl 150 mcg patch which he was previously on, but the p.r.n. oxycodone is stopped, and he will be on Dilaudid 4 mg 4 times a day scheduled and then every 2 hours as needed for pain. If he needs something further for breakthrough pain, he will have 1 mg of subcu Dilaudid, however, he only required 1 dose here. He will also be on the Valium 5 mg at bedtime and every 4 hours as needed for anxiety and muscle spasm. He will be on Keflex 4 times a day for another 5 days. He will stay off Neurontin. He will be off prednisone. He will be on magnesium supplements. If he has further loose stools, we will hold his laxatives. I have also stopped his glipizide as his blood sugars were under control even on prednisone. He will also have the Oneal catheter in place, change every 4 weeks, and may use lidocaine gel twice daily on the legs for pain. MKA: 04/09/2018 08:41:01 MODL: 04/09/2018 10:31:01 /[id number]
== END 2018-04-09 15:55 | disposition hospice, home (50) | DRG 603 ==
LOC: VM.MS 11:50
PROVIDERS: ADMIT Internal Medicine; ATTEND Internal Medicine
DX: L03.115 Cellulitis of right lower limb (principal); Z68.42 Body mass index [BMI] 45.0-49.9, adult; I50.22 Chronic systolic (congestive) heart failure; Z51.5 Encounter for palliative care; I11.0 Hypertensive heart disease with heart failure; Z66 Do not resuscitate; J44.9 Chronic obstructive pulmonary disease, unspecified; M06.9 Rheumatoid arthritis, unspecified; E66.01 Morbid (severe) obesity due to excess calories; F41.9 Anxiety disorder, unspecified; M62.838 Other muscle spasm; E11.9 Type 2 diabetes mellitus without complications; I48.91 Unspecified atrial fibrillation; G47.30 Sleep apnea, unspecified; F17.210 Nicotine dependence, cigarettes, uncomplicated; I25.5 Ischemic cardiomyopathy; R33.9 Retention of urine, unspecified; G62.9 Polyneuropathy, unspecified; R09.02 Hypoxemia; M54.42 Lumbago with sciatica, left side; M54.41 Lumbago with sciatica, right side; Z79.52 Long term (current) use of systemic steroids; Z79.899 Other long term (current) drug therapy; Z88.8 Allergy status to other drugs, medicaments and biological substances; Z79.02 Long term (current) use of antithrombotics/antiplatelets; Z79.82 Long term (current) use of aspirin; Z79.84 Long term (current) use of oral hypoglycemic drugs; Z79.891 Long term (current) use of opiate analgesic
CPT/HCPCS: 51702; 82962; 94760; A9270-GY; J1170

== ENCOUNTER 2018-04-21 13:15 | Inpatient (IN) | payer SELFPAY ==
[~2018-04-21 13:15] MED LIST: Aluminum Hydroxide/Magnesium Hydroxide/Simethicone Susp 30 ML Cup PO PRN; Aspirin 325 MG Tab.EC PO SCH; Bumetanide 1 MG Tab PO SCH; Carvedilol 6.25 MG Tab PO SCH; Diazepam 5 MG Tab PO PRN; Digoxin 125 MCG Tab PO SCH; FENTANYL TD SCH; Magnesium Oxide 400 MG Tab PO SCH; Metoclopramide 10 MG/2 ML SDV IVPUSH PRN; Non-Formulary Medication 1 Each (Ondansetron 4 MG) PO PRN; Omeprazole 20 MG Cap.CR PO SCH; Sertraline 50 MG Tab PO SCH; diphenhydrAMINE 25 MG Cap PO PRN
[2018-04-21] MEDS ORDERED: HYDROmorphone 2 MG Tab PO PRN (15:23)
[2018-04-21] MEDS: Lidocaine 2% Jelly 5 ML Tube TOP SCH ×2 (16:40→21:13)
[2018-04-21] MEDS: HYDROmorphone 2 MG Tab PO SCH ×2 (16:41→16:42)
[2018-04-21] MEDS ORDERED: HYDROmorphone 1 MG/ML Syringe SUBCUT SCH (20:30)
[2018-04-21] MEDS: HYDROmorphone 1 MG/ML Syringe SUBCUT PRN ×2 (21:14→21:20)
[2018-04-21] MEDS: Haloperidol Lactate 2 MG/ML Oral Soln 15 ML Bottle PO PRN (21:21)
--- NOTE | 2018-04-22 00:19 | HP ---
CHIEF COMPLAINT: Delirium, end-of-life cares. HISTORY OF PRESENT ILLNESS: This 67-year-old male who is well known to myself as he is on hospice now since last October. He was recently admitted for GIP on the 04/06 for cellulitis of his leg which led to a significant pain exacerbation. He was treated with antibiotics and that did improve. He has not had any fever or chills. He has been not eating in the last 2 days. He has pretty much not been out of bed the last day, but was up with a walker evening. He has a catheter in place. He is still having some bowel movements, which he was incontinent of yesterday. When I ask him currently if he had pain, he said "no." His answered most of the questions for him. He appears to be resting comfortably. He is not moaning. ALLERGIES: Ticlopidine. MEDICATIONS: His medication list currently does include only comfort-related medications, DuoNebs p.r.n., aluminum hydroxide for indigestion, atropine for secretion, Valium 5 mg q.4 hours p.r.n. restlessness and 2.5 mg q.4 hours scheduled. Zofran 4 mg q.4 hours p.r.n., Benadryl 25 mg q.4 hours p.r.n. nausea, fentanyl 150 mcg patch, Haldol 1 mg q.6 hours p.r.n. agitation, Dilaudid 1 mg q.3 hours p.r.n., hyoscyamine 0.125 q.4 hours p.r.n. secretions, lidocaine jelly topically as needed, Reglan 10 mg IV q.i.d. p.r.n. nausea, Dilaudid p.o. 4 mg q.2 hours p.r.n. and 4 mg p.o. q.6 hours as scheduled. PAST MEDICAL HISTORY: Includes; 1. Chronic systolic heart failure with multiple CHF exacerbations, EF of 25% in the past, on hospice for the same, on Bumex and metolazone. 2. Chronic back pain and leg pain, now currently more of a back pain. He is status post multiple surgeries. 3. Chronic obstructive pulmonary disease with chronic hypoxia, previously on Trilogy, unable to tolerate over the last few days. He has been actively smoking up until recently. 4. Rheumatoid arthritis with previous flares. He is currently on no medications for it. 5. Diabetes, on oral medications. 6. Atrial fibrillation. 7. Morbid obesity. PAST SURGICAL HISTORY: He has had multiple back surgeries otherwise. REVIEW OF SYSTEMS: Currently difficult to obtain other than what is stated due to the patient's sedation. He is resting comfortably. PHYSICAL EXAMINATION: Vital Signs: His weight is listed at 135.1 kg. Actually from his previous admission, he is down 10 pounds in just couple weeks. His temperature is 98.9, pulse 42, blood pressure 122/58, respiratory rate 22, O2 of 91 on 4-2 L. General: He is in no acute distress. Heart: His tones are distant, but his heart is regular. His rate when I examined him did seem slightly faster than 42, right around 60. Abdomen: Nondistended. He has a hernia in place. It is nontender. Lungs: Sounds decreased but poor respiratory effort. Extremities: They are warm. There is some redness over the right may, but no edema. No open sores. There are some scabs noted on the left may with some redness, but no warmth to suggest another infection. : Oneal in place. Neurologic: Mental status, he is somnolent. He did wake up. He did not seem to recognize me. He did not answer. We did not go through specific orientation questions. ASSESSMENT AND PLAN: Chronic systolic heart failure, EF 25%, on hospice. The patient has reached a point where his could no longer care for him at home. She had 3 caregivers helping her last evening in hospice, and at this point has decided to come in on swing bed for further assistance. The patient will be admitted per comfort care orders. All of his home medications, even heart failure ones have been discontinued. Specifically, his pulse is low, so his beta-blockers and digoxin have been stopped. I would consider giving him Subcutaneous bumex or lasix if needed but right now I don't fell it would provide any relief for his symptoms. Otherwise, we will schedule subcu Dilaudid q.6 hours 1 mg if he is really not taking anything orally. We will also have some p.r.n. available. He is on a fentanyl patch as well, but given his body habitus, absorption is always a concern. He will also be on scheduled 2.5 subcu Valium. He does have other p.r.n. medications for agitation, secretions and nausea. Otherwise, DVT prophylaxis is not indicated due to comfort care status. Anticipate if his course continues to worsen, he may pass in the next days to week. [facility] and hospice are also available should discharge planning be needed, but that would only be if he would improve and be able to return home with his . MKA: 04/21/2018 20:35:12 MODL: 04/22/2018 00:10:15 /[id number] MTDD
[2018-04-22] MEDS: HYDROmorphone 1 MG/ML Syringe SUBCUT PRN ×4 (00:20→22:31)
[2018-04-22] MEDS: Diazepam 5 MG/ML ML Oral Soln 30 ML Bottle PO PRN ×3 (00:23→22:40)
[2018-04-22] MEDS: HYDROmorphone 1 MG/ML Syringe SUBCUT SCH ×4 (02:44→20:18)
[2018-04-22] MEDS: HYOSCYAMINE SULFATE 0.125 MG PO PRN (02:47)
[2018-04-22] MEDS: Lidocaine 2% Jelly 5 ML Tube TOP SCH ×2 (08:18→20:17)
[2018-04-22] MEDS: Haloperidol Lactate 2 MG/ML Oral Soln 15 ML Bottle PO PRN ×2 (09:55→18:31)
[2018-04-22] MEDS: diazePAM 5 MG/ML MDV IVPUSH PRN ×3 (14:14→22:30)
[2018-04-22] MEDS: Albuterol/Ipratropium 3.0-0.5 MG/3 ML Neb Soln INH PRN ×2 (18:30→22:31)
[2018-04-23] MEDS: Haloperidol Lactate 2 MG/ML Oral Soln 15 ML Bottle PO PRN ×3 (00:31→09:28)
[2018-04-23] MEDS: HYDROmorphone 1 MG/ML Syringe SUBCUT SCH ×2 (02:30→08:29)
[2018-04-23] MEDS: diazePAM 5 MG/ML MDV IVPUSH PRN ×3 (02:31→19:49)
[2018-04-23] MEDS: Diazepam 5 MG/ML ML Oral Soln 30 ML Bottle PO PRN ×2 (02:31→06:14)
[2018-04-23] MEDS: HYOSCYAMINE SULFATE 0.125 MG PO PRN ×2 (02:38→14:48)
[2018-04-23 05:09] VITALS: BP 128/57
[2018-04-23] MEDS: HYDROmorphone 1 MG/ML Syringe SUBCUT PRN (06:13)
[2018-04-23] MEDS ORDERED: Metolazone 2.5 MG Tab PO SCH (08:00)
[2018-04-23] MEDS: Lidocaine 2% Jelly 5 ML Tube TOP SCH (08:30)
[2018-04-23] MEDS ORDERED: HYDROmorphone 1 MG/ML Syringe SUBCUT PRN (09:40)
[2018-04-23] MEDS ORDERED: [UNRECOGNIZED DRUG - REMARK] SCH (09:45)
[2018-04-23] MEDS ORDERED: hydrOXYzine HCl 50 MG/ML SDV IM ONE (11:11)
[2018-04-23] MEDS ORDERED: HYDROmorphone 1 MG/ML Syringe IV PRN (11:39)
[2018-04-23] MEDS ORDERED: HYDROmorphone 1 MG/ML Syringe SUBCUT SCH (12:00)
[2018-04-23] MEDS ORDERED: Ondansetron 4 MG/2 ML SDV IVPUSH PRN (12:22)
[2018-04-23] MEDS ORDERED: diphenhydrAMINE 50 MG/ML SDV IVPUSH PRN (12:35)
[2018-04-23] MEDS ORDERED: HYOSCYAMINE 0.125 MG/ML PO PRN (12:41)
[2018-04-23] MEDS ORDERED: HYDROmorphone 1 MG/ML Syringe IV SCH (14:13)
[2018-04-23] MEDS ORDERED: HYOSCYAMINE 0.125 MG/ML BUCCAL PRN (14:14)
[2018-04-23] MEDS ORDERED: Haloperidol Lactate 2 MG/ML Oral Soln 15 ML Bottle PO PRN (14:15)
[2018-04-23] MEDS: diazePAM 5 MG/ML MDV IVPUSH SCH ×3 (14:46→22:15)
[2018-04-23] MEDS: HYDROmorphone 1 MG/ML Syringe IV PRN ×5 (16:13→23:59)
[2018-04-23] MEDS: HYDROmorphone 1 MG/ML Syringe IV SCH (18:07)
[2018-04-24] MEDS: HYDROmorphone 1 MG/ML Syringe IV SCH ×6 (00:04→23:52)
[2018-04-24] MEDS: diazePAM 5 MG/ML MDV IVPUSH PRN ×6 (00:05→23:52)
[2018-04-24] MEDS: HYDROmorphone 1 MG/ML Syringe IV PRN ×6 (02:15→23:05)
[2018-04-24] MEDS: diazePAM 5 MG/ML MDV IVPUSH SCH ×6 (02:15→22:14)
[2018-04-24] MEDS ORDERED: fentaNYL 100 MCG/HR Transdermal Patch TRDERM SCH (08:00)
[2018-04-24] MEDS ORDERED: fentaNYL 50 MCG/HR Transdermal Patch TRDERM SCH (08:00)
[2018-04-24] MEDS: HYOSCYAMINE SULFATE 0.125 MG PO PRN (09:22)
[2018-04-24] MEDS: Glycopyrrolate 0.2 MG/ML 2 ML SDV IV SCH ×2 (11:57→15:53)
[2018-04-24] MEDS: Atropine 1% Ophth Soln 5 ML BOTTLE SL PRN (14:50)
[2018-04-24] MEDS ORDERED: Ondansetron 4 MG Tab.DIS PO PRN (15:18)
[2018-04-24] MEDS: Atropine 1% Ophth Soln 5 ML BOTTLE SL SCH ×3 (15:53→23:47)
[2018-04-24] MEDS ORDERED: Haloperidol Lactate 5 MG/ML SDV IM ONE (17:16)
[2018-04-25] MEDS: HYDROmorphone 1 MG/ML Syringe IV PRN (02:15)
[2018-04-25] MEDS: diazePAM 5 MG/ML MDV IVPUSH SCH ×4 (02:15→14:44)
[2018-04-25] MEDS: Atropine 1% Ophth Soln 5 ML BOTTLE SL SCH ×4 (03:57→14:44)
[2018-04-25] MEDS: HYDROmorphone 1 MG/ML Syringe IV SCH ×3 (03:57→11:11)
[2018-04-25] MEDS: Atropine 1% Ophth Soln 5 ML BOTTLE SL PRN (06:13)
--- NOTE | 2018-04-27 09:03 | DISCH ---
DATE OF : 04/25/2018. PRIMARY CAUSE OF : 1. Chronic systolic heart failure, EF 25%, on hospice for the same. 2. Chronic back pain and leg pain. 3. Chronic lymphedema with recurrent cellulitis. 4. Chronic obstructive pulmonary disease with chronic hypoxia. 5. Rheumatoid arthritis. 6. Obstructive sleep apnea. 7. Morbid obesity. 8. Diabetes. 9. Atrial fibrillation. REASON FOR ADMISSION: On the date of admission, this 67-year-old male who is well-known to myself as a primary care patient from the clinic, had been on hospice since last October. He was having increasing delirium at home. He was having difficulty moving around and had a rapid decline over the last 2 days. His was no longer able to care for him. He had recently been in the hospital on a GIP stay due to increasing leg pain from an infection. He had completed his antibiotics. He had been taken off his Coumadin and multiple medications including his oral diabetes agents and even his heart failure medications like Bumex. As he was eating less, he was not retaining food. He was quite hypoxic. His sats were in the 80s, requiring 4-5 L of oxygen. He was receiving increasing doses of medications for pain and anxiety. Most recently, in the past 24 hours, his Haldol had to be increased due to agitation. He was on scheduled Dilaudid. He had also had a fentanyl patch. He was also on scheduled and p.r.n. Ativan. The patient did pass away peacefully with his family and hospice at the bedside at 1:34 p.m. MKA: 04/26/2018 20:12:22 MODL: 04/27/2018 03:51:51 /[id number]
== END 2018-04-25 15:35 | disposition expired | DRG 951 ==
LOC: VM.MS 13:15
PROVIDERS: ADMIT Internal Medicine; ATTEND Internal Medicine
DX: Z51.5 Encounter for palliative care (principal); I50.22 Chronic systolic (congestive) heart failure; Z68.41 Body mass index [BMI] 40.0-44.9, adult; L03.115 Cellulitis of right lower limb; G89.29 Other chronic pain; M54.9 Dorsalgia, unspecified; J44.9 Chronic obstructive pulmonary disease, unspecified; F17.200 Nicotine dependence, unspecified, uncomplicated; M06.9 Rheumatoid arthritis, unspecified; E11.9 Type 2 diabetes mellitus without complications; I48.91 Unspecified atrial fibrillation; E66.01 Morbid (severe) obesity due to excess calories; F41.9 Anxiety disorder, unspecified; Z96.0 Presence of urogenital implants; R41.0 Disorientation, unspecified; R45.1 Restlessness and agitation; Z98.890 Other specified postprocedural states; Z88.8 Allergy status to other drugs, medicaments and biological substances; Z79.891 Long term (current) use of opiate analgesic; Z79.899 Other long term (current) drug therapy
CPT/HCPCS: 94640; 94760; A9270-GY; J1170; J1200; J1630; J3360; J3410; J3490; J7620-GY